=== PATIENT | female | born 1960 | race Two or more races ===

== ENCOUNTER → 2024-08-20 | Outpatient (CLI) | payer MEDICAID, SELFPAY ==
[2024-08-20 11:41] LABS: Basophils # (Auto) 0.1 Thou/mm3 (0.0-0.2); Basophils % (Auto) 1 % (0-2.5); Eosinophils # (Auto) 0.1 Thou/mm3 (0.0-0.5); Eosinophils % (Auto) 1 % (0-10); Hematocrit 42.2 % (36.0-46.0); Hemoglobin 13.4 g/dL (12.0-16.0); Immature Granulocytes % (Auto) 0 % (0-0); Immature Granulocytes Auto 0.02 Thou/mm3 (0.00-0.00); Lymphocytes # (Auto) 2.5 Thou/mm3 (1.0-4.8); Lymphocytes % (Auto) 27 % (10-50); Mean Corpuscular HGB Conc 31.8 g/dl (31.0-37.0); Mean Corpuscular Hemoglobin 29.1 pg (25.0-35.0); Mean Corpuscular Volume 92 fL (80-100); Monocytes # (Auto) 0.6 Thou/mm3 (0.0-0.8); Monocytes % (Auto) 6 % (0-12); Neutrophils % (Auto) 65 % (37-80); Nucleated Red Blood Cell % 0 /100 WBC (0); Platelet Count 232 Thou/mm3 (140-440); RDW Standard Deviation 47.4 fL (36.4-46.3); White Blood Count 9.2 Thou/mm3 (3.6-11.0)
[2024-08-20 11:59] LABS: Alanine Aminotransferase 11 U/L (10-49); Albumin, Serum 4.4 gm/dL (3.4-4.8); Albumin/Globulin Ratio 1.7 (1.2-2.2); Alkaline Phosphatase 129 U/L (46-116); Anion Gap 5 (7-16); Aspartate Amino Transferase 15 U/L (0-34); BUN/Creatinine Ratio 19 Ratio (12-20); Bilirubin,Total 0.5 mg/dL (0.3-1.2); Blood Urea Nitrogen 15 mg/dL (9-23); Carbon Dioxide 29.1 mMol/L (20.0-31.0); Chloride 108 mMol/L (98-107); Creatinine (Component) 0.8 mg/dL (0.6-1.3); Globulin 2.6 gm/dL (2.3-3.5); Glucose 94 mg/dL (74-106); Osmolality,Calculated 283 (275-295); Potassium 4.6 mMol/L (3.4-5.1); Sodium 142 mMol/L (136-145); eGFR > 60 See Note
== END | disposition home or self-care (01) ==
LOC: SCTO 10:49
PROVIDERS: PCP Physician Assistant Medical; Referring Provider Internal Medicine Hematology & Oncology; Visit Provider Internal Medicine Hematology & Oncology
DX: C50.912 Malignant neoplasm of unspecified site of left female breast (principal)
CPT/HCPCS: 36415; 80053; 85025

== ENCOUNTER 2024-08-26 13:03 | Outpatient (RCR) | payer MEDICARE, MEDICAID, SELFPAY ==
--- NOTE | 2024-08-20 11:21 | CTCFLWUP_ITS ---
[facility] [address] [place], [place] [address] FOLLOW-UP NOTE Date: 08/20/2024 MR#: [id number] Name: SAAD BOLDEN : 1960 Dx: C50.912 Malignant neoplasm of unspecified site of left female breast Identification. Patient with stage I ([id number]) receptor positive HER2 negative CA left breast status post partial mastectomy 1 sentinel node removed Pro Signa intermediate risk 46. Recommended to have radiation therapy without chemo which she completed 04/16/2024. 3990 cGy with 1 000 E boost. Patient is currently on Citracal plus D slow release 600-12.5 twice daily along with tamoxifen 20 [address]id[address]. Tolerating well. Osteoporosis noted on bone density test 05/15/2024 prescribed Reclast once a yea r. States that she is having pain right breast that prevents her from getting a sleep but wears a bra wh ich holds in its place which helps. Not interested in pain pills at this point The breast appears cosmetically satisfactory with thickened area on the inner portion site of the li ginal surgical scar tumor boost. Assessment #1 stage I ([id number]) receptor positive HER2 negative left breast CA status post partial ma stectomy 1 sentinel node removal pro Signa intermediate risk 46. #2. Prescribed tamoxifen; completed XRT to left breast 3990 cGy with E boost completed 04/16/2024. A lso prescribed Reclast once a year for osteoporosis on bone density test. #3. Treated breast looks satisfactory cosmetically, has some tenderness and pain at the scar in the boost site. Declines pain med at this time. #4. Medical oncologist Dr. Mcgrath to see her tomorrow. #5. I will see her in 6 months time. Electronically signed by: Joseph Mendiola M.D. 08/20/2024 11:19 AM
== END 2024-09-13 23:59 | disposition home or self-care (01) ==
LOC: SCTC 13:03
PROVIDERS: PCP Physician Assistant; Referring Provider Radiology Therapeutic Radiology; Visit Provider Internal Medicine Hematology & Oncology
DX: C50.812 Malignant neoplasm of overlapping sites of left female breast (principal); Z17.0 Estrogen receptor positive status [ER+]; Z17.21 Progesterone receptor positive status; Z17.32 Human epidermal growth factor receptor 2 negative status; M81.0 Age-related osteoporosis without current pathological fracture; Z90.12 Acquired absence of left breast and nipple; N64.4 Mastodynia
CPT/HCPCS: 96365; 99212; 99213; J3489; G0463

== ENCOUNTER → 2024-09-09 | Outpatient (CLI) | payer MEDICAID, SELFPAY ==
--- NOTE | 2024-09-09 14:45 | XR_ITS ---
Examination: Ultrasound soft tissue neck TECHNIQUE: Multiple high resolution grayscale sonographic images soft tissue neck Exam date and time: September 09, 2024 1450 hours INDICATIONS: Palpable right neck lump noticed beginning 9 months ago FINDINGS: Soft tissue mass isoechoic at the area concern 3.6 x 0.9 x 2.9 cm IMPRESSION: Findings most consistent with soft tissue lipoma at the area concern, recommend CT soft tissue neck post intravenous contrast follow-up for confirmation
== END | disposition home or self-care (01) ==
PROVIDERS: PCP Physician Assistant Medical; Referring Provider Internal Medicine Hematology & Oncology; Visit Provider Internal Medicine Hematology & Oncology
DX: R22.1 Localized swelling, mass and lump, neck (principal); C50.912 Malignant neoplasm of unspecified site of left female breast
CPT/HCPCS: 76536

== ENCOUNTER → 2024-10-13 | Outpatient (CLI) | payer MEDICARE, MEDICAID, SELFPAY | END | disposition home or self-care (01) | PROVIDERS: Referring Provider Internal Medicine Hematology & Oncology; Visit Provider Internal Medicine Hematology & Oncology | DX: Z53.8 Procedure and treatment not carried out for other reasons (principal) ==

== ENCOUNTER → 2024-10-22 | Outpatient (CLI) | payer MEDICAID, SELFPAY ==
[2024-10-22 11:32] LABS: Basophils # (Auto) 0.1 Thou/mm3 (0.0-0.2); Basophils % (Auto) 1 % (0-2.5); Eosinophils # (Auto) 0.1 Thou/mm3 (0.0-0.5); Eosinophils % (Auto) 1 % (0-10); Hemoglobin 13.1 g/dL (12.0-16.0); Immature Granulocytes % (Auto) 0 % (0-0); Immature Granulocytes Auto 0.02 Thou/mm3 (0.00-0.00); Lymphocytes # (Auto) 1.9 Thou/mm3 (1.0-4.8); Lymphocytes % (Auto) 22 % (10-50); Mean Corpuscular HGB Conc 33.6 g/dl (31.0-37.0); Mean Corpuscular Volume 86 fL (80-100); Monocytes # (Auto) 0.5 Thou/mm3 (0.0-0.8); Monocytes % (Auto) 6 % (0-12); Neutrophils # (Auto) 5.8 Thou/mm3 (1.8-7.7); Neutrophils % (Auto) 70 % (37-80); Nucleated Red Blood Cell % 0 /100 WBC (0); Platelet Count 269 Thou/mm3 (140-440); RDW Standard Deviation 44.4 fL (36.4-46.3); Red Blood Count 4.52 Miln/mm3 (4.00-5.20); White Blood Count 8.3 Thou/mm3 (3.6-11.0)
[2024-10-22 12:10] LABS: CA 15-3 8.4 U/mL (<32.4)
[2024-10-22 12:17] LABS: Alanine Aminotransferase 13 U/L (10-49); Albumin, Serum 4.6 gm/dL (3.4-4.8); Albumin/Globulin Ratio 1.6 (1.2-2.2); Alkaline Phosphatase 115 U/L (46-116); Anion Gap 9 (7-16); Aspartate Amino Transferase 18 U/L (0-34); BUN/Creatinine Ratio 21 Ratio (12-20); Bilirubin,Total 0.4 mg/dL (0.3-1.2); Blood Urea Nitrogen 15 mg/dL (9-23); Calcium 9.5 mg/dL (8.3-10.6); Calcium (Corrected) 9.5 mg/dL (8.5-10.1); Carbon Dioxide 25.8 mMol/L (20.0-31.0); Chloride 104 mMol/L (98-107); Creatinine (Component) 0.7 mg/dL (0.6-1.3); Globulin 2.9 gm/dL (2.3-3.5); Glucose 96 mg/dL (74-106); Osmolality,Calculated 278 (275-295); Potassium 3.9 mMol/L (3.4-5.1); Sodium 139 mMol/L (136-145); Total Protein 7.5 gm/dL (5.7-8.2); eGFR > 60 See Note
== END | disposition home or self-care (01) ==
LOC: SCTO 10:39
PROVIDERS: PCP Physician Assistant Medical; Referring Provider Internal Medicine Hematology & Oncology; Visit Provider Internal Medicine Hematology & Oncology
DX: C50.912 Malignant neoplasm of unspecified site of left female breast (principal)
CPT/HCPCS: 36415; 80053; 85025; 86300

== ENCOUNTER → 2024-10-23 | Outpatient (CLI) | payer MEDICAID, SELFPAY ==
--- NOTE | 2024-10-23 13:33 | XR_ITS ---
Examination: CT soft tissue neck, with intravenous contrast. 2-D coronal reconstructions. 2-D sagittal reconstructions. Date and time of exam :October 23, 2024 1400 hours INDICATIONS: Diagnosis malignant neoplasm left female breast, patient states onset right-sided neck swelling 2 months. CTDI: vol (mGy):8.82 DLP: (mGycm):228 Technique: 1.25 mm axial sections of the neck of the obtained. Coronal and sagittal reconstructions have been obtained. Intravenous contrast administered 50 cc Isovue-370 Low dose protocols were performed. One or more of the following dose reduction techniques were used; automated exposure control, adjustment of the mA and/or KV according to patient size, use of iterative reconstruction technique. Findings: The optic globes exhibit symmetry Maxillary antra are clear Symmetrical nasopharynx oropharynx Right parotid gland is larger than left parietal gland with mild inflammatory change Symmetrical submandibular glands No pathologic carotid triangle submental lymphadenopathy The larynx appears normal Thyroid lobes exhibit symmetry Normal epiglottis Disc disease C5-C6, C6-C7 IMPRESSION: Suspicious for mild parotiditis on the right
== END | disposition home or self-care (01) ==
PROVIDERS: Referring Provider Internal Medicine Hematology & Oncology; Visit Provider Internal Medicine Hematology & Oncology
DX: R22.1 Localized swelling, mass and lump, neck (principal); C50.912 Malignant neoplasm of unspecified site of left female breast
CPT/HCPCS: 70491; A4649; Q9967

== ENCOUNTER 2024-10-27 13:18 | Outpatient (RCR) | payer MEDICAID, SELFPAY | END 2024-11-14 23:59 | disposition home or self-care (01) | LOC: SCTC 13:18 | PROVIDERS: PCP Physician Assistant Medical; Referring Provider Physician Assistant Medical; Visit Provider Internal Medicine Hematology & Oncology | DX: M85.80 Other specified disorders of bone density and structure, unspecified site (principal); C50.812 Malignant neoplasm of overlapping sites of left female breast; Z17.0 Estrogen receptor positive status [ER+]; Z17.21 Progesterone receptor positive status; Z17.32 Human epidermal growth factor receptor 2 negative status; Z79.810 Long term (current) use of selective estrogen receptor modulators (SERMs) | CPT/HCPCS: 96365; J3489 ==

== ENCOUNTER → 2025-01-22 | Outpatient (CLI) | payer MEDICAID, SELFPAY ==
[2025-01-22 11:55] LABS: Basophils # (Auto) 0.1 Thou/mm3 (0.0-0.2); Basophils % (Auto) 1 % (0-2.5); Eosinophils # (Auto) 0.1 Thou/mm3 (0.0-0.5); Eosinophils % (Auto) 1 % (0-10); Hematocrit 38.7 % (36.0-46.0); Hemoglobin 12.5 g/dL (12.0-16.0); Immature Granulocytes % (Auto) 0 % (0-0); Immature Granulocytes Auto 0.03 Thou/mm3 (0.00-0.00); Lymphocytes % (Auto) 23 % (10-50); Mean Corpuscular HGB Conc 32.3 g/dl (31.0-37.0); Mean Corpuscular Hemoglobin 28.4 pg (25.0-35.0); Mean Corpuscular Volume 88 fL (80-100); Monocytes # (Auto) 0.6 Thou/mm3 (0.0-0.8); Monocytes % (Auto) 6 % (0-12); Neutrophils # (Auto) 6.1 Thou/mm3 (1.8-7.7); Neutrophils % (Auto) 69 % (37-80); Nucleated Red Blood Cell % 0 /100 WBC (0); Platelet Count 240 Thou/mm3 (140-440); RDW Standard Deviation 47.5 fL (36.4-46.3); White Blood Count 8.8 Thou/mm3 (3.6-11.0)
[2025-01-22 12:19] LABS: Alanine Aminotransferase 9 U/L (10-49); Albumin, Serum 4.2 gm/dL (3.4-4.8); Albumin/Globulin Ratio 1.6 (1.2-2.2); Alkaline Phosphatase 95 U/L (46-116); Anion Gap 6 (7-16); Aspartate Amino Transferase 14 U/L (0-34); BUN/Creatinine Ratio 24 Ratio (12-20); Bilirubin,Total 0.3 mg/dL (0.3-1.2); Blood Urea Nitrogen 19 mg/dL (9-23); Calcium 9.3 mg/dL (8.3-10.6); Calcium (Corrected) 9.3 mg/dL (8.5-10.1); Carbon Dioxide 28.8 mMol/L (20.0-31.0); Chloride 109 mMol/L (98-107); Creatinine (Component) 0.8 mg/dL (0.6-1.3); Globulin 2.7 gm/dL (2.3-3.5); Glucose 97 mg/dL (74-106); Osmolality,Calculated 289 (275-295); Sodium 144 mMol/L (136-145); Total Protein 6.9 gm/dL (5.7-8.2); eGFR > 60 See Note
[2025-01-22 12:23] LABS: CA 15-3 6.9 U/mL (<32.4)
== END | disposition home or self-care (01) ==
LOC: SLAB 11:19
PROVIDERS: PCP Physician Assistant Medical; Referring Provider Internal Medicine Hematology & Oncology; Visit Provider Internal Medicine Hematology & Oncology
DX: C50.912 Malignant neoplasm of unspecified site of left female breast (principal)
CPT/HCPCS: 36415; 80053; 85025; 86300

== ENCOUNTER 2025-01-26 13:10 | Outpatient (RCR) | payer MEDICAID, SELFPAY | END 2025-02-11 23:59 | disposition home or self-care (01) | LOC: SCTC 13:10 | PROVIDERS: PCP Physician Assistant Medical; Referring Provider Physician Assistant Medical; Visit Provider Internal Medicine Hematology & Oncology | DX: M85.80 Other specified disorders of bone density and structure, unspecified site (principal); C50.912 Malignant neoplasm of unspecified site of left female breast; C50.812 Malignant neoplasm of overlapping sites of left female breast; Z17.0 Estrogen receptor positive status [ER+]; Z17.21 Progesterone receptor positive status; Z17.32 Human epidermal growth factor receptor 2 negative status; Z90.12 Acquired absence of left breast and nipple; Z92.3 Personal history of irradiation; Z79.811 Long term (current) use of aromatase inhibitors | CPT/HCPCS: 96365; J3489 ==

== ENCOUNTER → 2025-02-13 | Outpatient (CLI) | payer MEDICAID, SELFPAY ==
[2025-02-13 14:27] LABS: Basophils # (Auto) 0.1 Thou/mm3 (0.0-0.2); Basophils % (Auto) 1 % (0-2.5); Eosinophils # (Auto) 0.1 Thou/mm3 (0.0-0.5); Eosinophils % (Auto) 2 % (0-10); Hematocrit 39.2 % (36.0-46.0); Hemoglobin 13.2 g/dL (12.0-16.0); Immature Granulocytes % (Auto) 0 % (0-0); Immature Granulocytes Auto 0.03 Thou/mm3 (0.00-0.00); Lymphocytes # (Auto) 2.1 Thou/mm3 (1.0-4.8); Lymphocytes % (Auto) 28 % (10-50); Mean Corpuscular HGB Conc 33.7 g/dl (31.0-37.0); Mean Corpuscular Hemoglobin 28.8 pg (25.0-35.0); Mean Corpuscular Volume 85 fL (80-100); Monocytes # (Auto) 0.4 Thou/mm3 (0.0-0.8); Monocytes % (Auto) 6 % (0-12); Neutrophils # (Auto) 4.8 Thou/mm3 (1.8-7.7); Neutrophils % (Auto) 63 % (37-80); Nucleated Red Blood Cell % 0 /100 WBC (0); Platelet Count 249 Thou/mm3 (140-440); RDW Standard Deviation 44.4 fL (36.4-46.3); Red Blood Count 4.59 Miln/mm3 (4.00-5.20); White Blood Count 7.6 Thou/mm3 (3.6-11.0)
[2025-02-13 14:52] LABS: Alanine Aminotransferase 11 U/L (10-49); Albumin, Serum 4.2 gm/dL (3.4-4.8); Albumin/Globulin Ratio 1.6 (1.2-2.2); Alkaline Phosphatase 107 U/L (46-116); Anion Gap 10 (7-16); Aspartate Amino Transferase 13 U/L (0-34); BUN/Creatinine Ratio 13 Ratio (12-20); Bilirubin,Total 0.3 mg/dL (0.3-1.2); Blood Urea Nitrogen 12 mg/dL (9-23); Calcium 8.9 mg/dL (8.3-10.6); Calcium (Corrected) 8.9 mg/dL (8.5-10.1); Carbon Dioxide 28.6 mMol/L (20.0-31.0); Chloride 105 mMol/L (98-107); Creatinine (Component) 0.9 mg/dL (0.6-1.3); Globulin 2.7 gm/dL (2.3-3.5); Glucose 145 mg/dL (74-106); Osmolality,Calculated 289 (275-295); Sodium 144 mMol/L (136-145); Total Protein 6.9 gm/dL (5.7-8.2); eGFR > 60 See Note
== END | disposition home or self-care (01) ==
PROVIDERS: PCP Physician Assistant Medical; Referring Provider Internal Medicine Hematology & Oncology; Visit Provider Internal Medicine Hematology & Oncology
DX: C50.912 Malignant neoplasm of unspecified site of left female breast (principal)
CPT/HCPCS: 36415; 80053; 85025; 86300

== ENCOUNTER 2025-02-18 10:20 | Outpatient (RCR) | payer MEDICAID, SELFPAY ==
--- NOTE | 2025-02-17 10:10 | CTCFLWUP_ITS ---
[facility] [address] [place], [place] [address] FOLLOW-UP NOTE Date: 02/17/2025 MR#: [id number] Name: SAAD BOLDEN : 1960 Dx: C50.912 Malignant neoplasm of unspecified site of left female breast Identification. Patient with history of left breast CA stage I ([id number]) ER/MI positive HER2 negative left breast status post partial mastectomy, pros Signa 46 intermediate risk, Medical oncologist Dr. Gill, recommended radiation therapy with hormone manipulation. Received radiation therapy to the left breast, 3990 cGy with 1000 E boost completed 04/16/2024. Examination of the left breast reveals satisfactory cosmetic appearance with no sign of recurrence. Mild tenderness at the boost site. Some fullness at the right lower neck which feels like a lipoma. Most recent ultrasound of the neck 09/09/2024 revealed right soft tissue mass 3.6 x 0.9 x 2.9 cm suggestive of lipoma but CT of the neck with IV contrast recommended. CT of the neck 10/23/2024 revealed mild parotitis on the right. A#1. Stage I receptor positive HER2 negative pro Abby 46 intermediate risk, Postop radiation therapy following partial mastectomy completed 04/16/2024. #2. Currently on tamoxifen under Dr. Mcgrath's direction. Also taking calcium vitamin D and Zometa. #3. Dr. Mcgrath scheduled see patient tomorrow. #4. I will see her as needed in the future. Electronically signed by: Joseph Mendiola M.D. 02/17/2025 10:08 AM
--- NOTE | 2025-02-17 10:16 | CTCFLWUP_ITS ---
[facility] [address] [place], [place] [address] FOLLOW-UP NOTE Date: 02/17/2025 MR#: [id number] Name: SAAD BOLDEN : 1960 Dx: C50.912 Malignant neoplasm of unspecified site of left female breast Addendum. Patient has been recently been taking anastrozole which seems to be causing more joint pain compared to prior tamoxifen. She will discuss this with Dr. Mcgrath tomorrow. Electronically signed by: Joseph Mendiola M.D. 02/17/2025 10:14 AM
--- NOTE | 2025-02-18 13:17 | CTCFLWUP_ITS ---
Patient: ABBIE ORTEGA : 1960 Page 2 of 2 FOLLOW UP NOTE DATE OF SERVICE: 02/18/2025 NAME: ABBIE ORTEGA ACCOUNT: [id number] : 1960 AGE: 64 INTERVAL HISTORY: Hali, a breast cancer patient, presented with increased joint pain from tamoxifen therapy and fatigue following a bone-strengthening infusion. Her history includes iron deficiency. She reported taking tamoxifen, anastrozole, Benadryl, calcipotriene, calcium supplements, iron supplements, vitamin C packets, and collagen. The assessment confirmed expected side effects from the infusion and tamoxifen. Management included continuing tamoxifen, increasing hydration, taking Benadryl for symptoms, calcium supplementation, regular walking, dietary modifications for iron intake, and sunscreen use. Follow-up scheduled in 6 months. Chief Complaint Increased joint pain with tamoxifen, fatigue after infusion History of Present Illness Hali is a patient with a history of breast cancer who presents for follow-up regarding joint pain associated with tamoxifen treatment and recent bone-strengthening infusion. The patient reports experiencing increased joint pain since starting tamoxifen therapy. She recently received a bone-strengthening infusion, which has caused additional discomfort. The patient describes feeling down after the infusion, which she understands is a normal reaction. She has been experiencing bone pain, which she attributes to the strengthening process initiated by the infusion. To manage these symptoms, she has been drinking lots of water and taking Benadryl as recommended. The patient mentions taking calcipotriene as advised following her infusion to maintain calcium levels. She expresses concern about her calcium intake, acknowledging that her current diet may not provide sufficient calcium, and recognizes the need for supplements due to decreased absorption with age. The patient also reports having iron deficiency despite eating chicken and vegetables, indicating ongoing nutritional challenges. To address her nutritional needs, the patient has been incorporating electrolyte packets with vitamin C into her daily routine, drinking one packet daily or two when feeling unwell. She has also been making smoothies to improve nutrient intake and absorption, considering adding protein powder or collagen for additional health benefits. The patient notes experiencing fatigue related to the infusions but continues to stay active and hydrated. She recently obtained a refill of tamoxifen from [facility], indicating adherence to her prescribed treatment regimen. Medical History - Iron deficiency - History of cancer (likely breast cancer, given tamoxifen use) Medications and Supplements - Tamoxifen - Causing more joint pain than before - Recently refilled at [facility] - Anastrozole - Bone strengthening infusion - Causes fatigue and pain as bones build - Lowers calcium in blood - Benadryl - Taken to help with infusion side effects - Calcipotriene - Vitamin C packets - Taken for electrolytes - Calcium supplements - Iron supplements - Taken for iron deficiency - Collagen - Taken for hair and skin health Social History - Diet: Eats chicken and vegetables; consumes smoothies with fruits and protein powder or collagen - Exercise: Advised to walk regularly - 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 Musculoskeletal: Positive for joint pain. ONCOLOGY HISTORY: DIAGNOSIS: Stage I (pT1c, sN0, cM0) intermediate grade, ER positive, HI positive, HER2/ester negative invasive ductal carcinoma of the left breast. S/p lumpectomy and sentinel lymph node biopsy (02/01/2024) Prosigna (R) breast cancer gene signature assay score 46 intermediate risk. Status post left breast adjuvant radiation therapy (04/08/2024 - 05/06/2024) Mammographically detected left breast well-differentiated invasive ductal carcinoma, ER positive, HI positive, HER2/ester negative.S/p core needle biopsy (11/14/2023). Hypertension Osteoporosis (DEXA 05/15/2024) REASON FOR TODAY?S VISIT: This is office follow-up visit. Ms. Ortega is here at [facility]. Since last visit she had completed the radiation therapy. She also had bone density test done which showed osteoporosis as documented below. She is clinically doing well at this time. Denies any cough, chest pain, abdominal pain or leg cramps. Ambulating well without any help. Has good appetite and good energy levels. Malignant neoplasm of unspecified site of left female breast [ICD10] C50.912 DATE OF DIAGNOSIS: STAGE/TNM: TREATMENT HISTORY: Care?Plan Start?Date Cycle Day Intent Reclast 05/21/2024 1 365 Palliative zometa?q?30?days,?q?90?days?for?bone?mets 08/26/2024 1 90 Maintenance HISTORY OF PRESENT ILLNESS: Abbie Ortega is a 64-year-old ENG speaking female with following oncology history. 10/17/2023: Ms. Ortega had core needle biopsy done for a mammographically detected abnormal lesion in the left breast at 9 o'clock position. 02/01/2024: Ms. Ortega had lumpectomy and sentinel lymph node biopsy of the left breast. 04/08/2024 - 05/06/2024: Ms. Ortega had a total of 4990 centigray radiation therapy to the left breast. 05/15/2024: Bone density test PAST MEDICAL HISTORY: Breast cancer - dx 11/14/23 HTN Hyperlipidemia Pre-diabetic Seasonal allergies OTHER MEDICAL HISTORY/CONDITIONS: Breast cancer - dx 11/14/23 HTN Hyperlipidemia Pre-diabetic Seasonal allergies Denies FAMILY HISTORY: Cancer History:?Maternal aunt - breast - dx 63 - SOCIAL HISTORY: Occupational?History:?Retired Education?Level:?Completed High School Marital?Status:? Tobacco?Pack?per?Day:?1 Tobacco?Use?Years:?40 Tobacco Use:?Still smoking 3-4 cigarettes/day ETOH?Use:?Socially Drug?Note:?Denies Social?History?Note:?Lives?alone CONFIGURATION MANAGEMENT ADMINISTRATOR HISTORY: Menarche?-?Age:?9 Menopause:?45 ?Test?Indicated:?0?-?NO??Not?Required Hormone?Use:?Denies :?2 Live?Births:?2 Age?1st?:?17 MEDICATIONS: 1. Calcium Citrate + - tab Daily 2. Citracal + D Slow Release - 600 mg-12.5 mcg (500 unit) 1 tab one tab po twice a day 3. hydroCHLOROthiazide - 12.5 mg tab Daily 4. loratadine - 10 mg (Rapid) tab Daily 5. magnesium oxide - 400 mg magnesium 1 tab Daily 6. nicotine (polacrilex) - 4 mg As directed 7. Nicotine Gum - As directed 8. potassium - 20 mg tab Daily 9. tamoxifen - 20 mg 1 tab one tab po q daily 10. vitamin E (dl, acetate) - 180 mg (400 unit) 1 Capsule Daily Medications Last Reconciled by Chrystal Hunter MD on 02/18/2025 ALLERGIES: No Known Allergies REVIEW OF SYSTEMS: A complete 14-point review of systems was performed and is negative except as noted in interval history. PHYSICAL EXAMINATION: VITAL SIGNS: Temperature?96.9, B/P?160/98, Oxygen?Saturation?95% Weight?126?lbs (Change?since?02/17/25:?0?lbs) PAIN: 0 - No pain ECOG Performance Status: 0 - Asymptomatic and fully active GENERAL APPEARANCE: Appears well, in no apparent distress, appropriately interactive. HEENT: Normocephalic, no temporal wasting, normal conjunctiva, no scleral icterus, normal hearing, lips without lesions, neck normal range of motion. CARDIOVASCULAR: Not assessed. PULMONARY: Normal respiratory effort, no respiratory distress or use of accessory muscles, speaking in full sentences, no tachypnea. EXTREMITIES: No pedal edema or cyanosis. SKIN: Normal skin appearance. NEUROLOGIC: Alert and oriented x4. PSHYCHIATRIC: Appropriate affect, mood normal, behavior normal, intact thought and speech. LABORATORY DATA: I have personally reviewed and interpreted each of the patient?s relevant lab tests, abnormal findings are below: Date 01/22/25 02/13/25 ??WHITE?BLOOD?COUNT?(Thou/mm3) 8.8 7.6 ??RED?BLOOD?COUNT?(Miln/mm3) 4.40 4.59 ??HEMOGLOBIN?(gm/dl) 12.5 13.2 ??HEMATOCRIT?(%) 38.7 39.2 ??PLATELET?COUNT?(Thou/mm3) 240 249 ??NEUTROPHILS?%,?AUTO?(%) 69 63 ??LYMPH?%,?AUTO?(%) 23 28 ??NEUTROPHILS,?AUTO?(Thou/mm3) 6.1 4.8 ??GLUCOSE,RANDOM?(mg/dL) 97 145?H ??BLOOD?UREA?NITROGEN?(mg/dL) 19 12 ??CREATININE?(mg/dL) 0.80 0.90 ??SODIUM?(mmol/L) 144 144 ??POTASSIUM?(mmol/L) 4.0 4.0 ??CHLORIDE?(mmol/L) 109?H 105 ??CrCl?(CandG)?(ml/min) 61.12 55.39 ??AST/SGOT?(Unit/L) 14 13 ??ALT/SGPT?(Unit/L) 9?L 11 ??ALKALINE?PHOSPHATASE?(Unit/L) 95 107 ??BILIRUBIN,?TOTAL?(mg/dL) 0.3 0.3 ??PROTEIN?TOTAL?(gm/dl) 6.9 6.9 ??ALBUMIN,?SERUM?(gm/dl) 4.2 4.2 ??GLOBULIN?(gm/dl) 2.7 2.7 ??ALBUMIN/GLOBULIN?RATIO 1.6 1.6 ??CALCIUM,?SERUM?(mg/dL) 9.3 8.9 ??CALCIUM?SERUM?(CORRECTED)?(mg/dL) 9.3 8.9 ASSESSMENT/PLAN: 1. Stage I (pT1c, sN0, cM0) intermediate grade, ER positive, HI positive, HER2/ester negative invasive ductal carcinoma of the left breast. 2. S/p radiation therapy to the left breast completed on 05/06/2024. 3. S/p lumpectomy and sentinel lymph node biopsy (02/01/2024) Prosigna (R) breast cancer gene signature assay score 46 intermediate risk. 4. Osteoporosis documented on bone density test done on 05/15/2024 5. Mammographically detected left breast well-differentiated invasive ductal carcinoma, ER positive, HI positive, HER2/ester negative.S/p core needle biopsy (11/14/2023). Hali, a patient on tamoxifen therapy, presents with increased joint pain following a bone-strengthening infusion. Joint pain associated with tamoxifen and bone-strengthening infusion Assessment: Patient reports experiencing increased joint pain following a bone- strengthening infusion while on tamoxifen therapy. This is likely a normal response to the infusion, which strengthens bones by depositing calcium from the blood into the bone tissue. The process can cause temporary pain and fatigue as the bones build strength. Additionally, the infusion may lead to a transient decrease in blood calcium levels. Plan: - Continue current tamoxifen therapy (dose and frequency not specified) - Recommend increased water intake to manage infusion side effects - Advise taking Benadryl for symptom relief (dose and frequency not specified) - Encourage calcium supplementation to prevent deficiency - Recommend electrolyte supplements with vitamin C for hydration and fatigue management - Advise on dietary calcium intake, cautioning against excessive cheese consumption due to potential heart issues - Encourage regular walking to prevent blood clots associated with tamoxifen use - Follow up in 6 months - Instruct patient to seek emergency care for new pain or shortness of breath Nutritional management Assessment: Patient reports eating chicken and vegetables but still experiences iron deficiency, likely due to poor absorption. This suggests a need for targeted nutritional supplementation and dietary adjustments to address potential deficiencies. Plan: - Recommend spinach consumption for iron intake - Advise on making nutrient-rich smoothies, incorporating fruits and protein powder or collagen - Caution against excessive sugar intake to prevent diabetes risk - Suggest daily intake of electrolyte packets with vitamin C, increasing to twice daily when ill - Recommend use of Emergen-C with vitamin C and electrolytes to combat weakness and fatigue, especially during outdoor activities Skin cancer prevention Assessment: Given the patient's ongoing cancer treatment, there is an increased importance of skin cancer prevention measures. Plan: - Advise regular use of sunscreen for skin cancer prevention Cardiovascular health Assessment: Patient on tamoxifen therapy, which carries a risk of blood clots. Additionally, there may be concerns about cardiovascular health in the context of cancer treatment. Plan: - Consider daily aspirin for heart attack prevention, especially if patient has high blood pressure or diabetes (dose not specified)Tamoxifen 20 mg p.o. daily. Plan is to give her tamoxifen for total of 5 to 7 years. Citracal 1 tablet p.o. twice daily. Reclast 5 mg IV once a year. I will see her back in clinic in 3 months with labs drawn prior to the visit. ORDERS: Order # Description [id number] Comprehensive Metabolic Panel - 12 + CBC with Auto Diff + CEA [id number] CA [id number] [id number] Follow Up 6 Month RETURN TO CLINIC: BILLING AND COMPLIANCE: I reviewed external records from providers outside my specialty as summarized above. I spent a total of 50 minutes on this patient?s care on the day of their visit excluding time spent related to any billed procedures. This time includes time spent with the patient as well as time spent documenting in the medical record, reviewing patients records and tests, obtaining history, placing orders, communicating with other healthcare professionals, counseling the patient, family or caregiver, and/or care coordination for the diagnoses above. Electronically Signed by: Lobo Mcgrath MD T: 1:15 PM CC: Jerson? PCP: Referring: Marii Taylor This document was completed utilizing speech recognition software. Grammatical errors, random word insertions, pronoun errors, and incomplete sentences are an occasional consequence of this system due to software limitations, ambient noise, and hardware issues. Any formal questions or concerns about the content, text or information contained within the body of this dictation should be directly addressed to the provider for clarification.
== END 2025-03-14 23:59 | disposition home or self-care (01) ==
LOC: SCTC 10:20
PROVIDERS: PCP Physician Assistant Medical; Referring Provider Physician Assistant Medical; Visit Provider Internal Medicine Hematology & Oncology
DX: C50.812 Malignant neoplasm of overlapping sites of left female breast (principal); Z17.0 Estrogen receptor positive status [ER+]; Z17.21 Progesterone receptor positive status; Z17.32 Human epidermal growth factor receptor 2 negative status; Z90.12 Acquired absence of left breast and nipple; Z92.3 Personal history of irradiation; Z79.810 Long term (current) use of selective estrogen receptor modulators (SERMs); M81.0 Age-related osteoporosis without current pathological fracture
CPT/HCPCS: 99212; G0463

== ENCOUNTER → 2025-08-24 | Outpatient (CLI) | payer MEDICARE, MEDICAID, SELFPAY ==
[2025-08-24 12:29] LABS: Alanine Aminotransferase 14 U/L (10-49); Albumin, Serum 4.5 gm/dL (3.4-4.8); Albumin/Globulin Ratio 2.3 (1.2-2.2); Alkaline Phosphatase 94 U/L (46-116); Anion Gap 8 (7-16); Aspartate Amino Transferase 17 U/L (0-34); BUN/Creatinine Ratio 24 Ratio (12-20); Bilirubin,Total 0.3 mg/dL (0.3-1.2); Blood Urea Nitrogen 19 mg/dL (9-23); Calcium 10.1 mg/dL (8.3-10.6); Calcium (Corrected) 10.1 mg/dL (8.5-10.1); Carbon Dioxide 31.3 mMol/L (20.0-31.0); Chloride 105 mMol/L (98-107); Creatinine (Component) 0.8 mg/dL (0.6-1.3); Globulin 2.0 gm/dL (2.3-3.5); Glucose 154 mg/dL (74-106); Osmolality,Calculated 292 (275-295); Potassium 3.8 mMol/L (3.4-5.1); Sodium 144 mMol/L (136-145); Total Protein 6.5 gm/dL (5.7-8.2); eGFR > 60 See Note
[2025-08-24 12:37] LABS: Basophils # (Auto) 0.1 Thou/mm3 (0.0-0.2); Basophils % (Auto) 1 % (0-2.5); Eosinophils # (Auto) 0.1 Thou/mm3 (0.0-0.5); Eosinophils % (Auto) 1 % (0-10); Hematocrit 40.1 % (36.0-46.0); Hemoglobin 13.3 g/dL (12.0-16.0); Immature Granulocytes Auto 0.03 Thou/mm3 (0.00-0.00); Lymphocytes # (Auto) 2.3 Thou/mm3 (1.0-4.8); Lymphocytes % (Auto) 28 % (10-50); Mean Corpuscular HGB Conc 33.2 g/dl (31.0-37.0); Mean Corpuscular Hemoglobin 29.6 pg (25.0-35.0); Mean Corpuscular Volume 89 fL (80-100); Monocytes # (Auto) 0.5 Thou/mm3 (0.0-0.8); Monocytes % (Auto) 5 % (0-12); Neutrophils # (Auto) 5.4 Thou/mm3 (1.8-7.7); Neutrophils % (Auto) 64 % (37-80); Nucleated Red Blood Cell # 0.00 Thou/mm3 (0.00-0.00); Nucleated Red Blood Cell % 0 /100 WBC (0); Platelet Count 230 Thou/mm3 (140-440); RDW Standard Deviation 45.3 fL (36.4-46.3); Red Blood Count 4.50 Miln/mm3 (4.00-5.20); White Blood Count 8.4 Thou/mm3 (3.6-11.0)
[2025-08-24 12:48] LABS: CA 15-3 2.9 U/mL (<32.4); Carcinoembryonic Antigen 4.2 ng/mL (0.0-5.0)
== END | disposition home or self-care (01) ==
LOC: SCTO 11:16
PROVIDERS: PCP Physician Assistant Medical; Referring Provider Internal Medicine Hematology & Oncology; Visit Provider Internal Medicine Hematology & Oncology
DX: C50.912 Malignant neoplasm of unspecified site of left female breast (principal)
CPT/HCPCS: 36415; 80053; 82378; 85025; 86300

== ENCOUNTER 2025-08-31 12:54 | Outpatient (RCR) | payer MEDICARE, MEDICAID, SELFPAY ==
--- NOTE | 2025-08-26 11:48 | CTCFLWUP_ITS ---
Patient: ABBIE ORTEGA : 1960 Page 2 of 2 FOLLOW UP NOTE DATE OF SERVICE: 08/26/2025 NAME: ABBIE ORTEGA ACCOUNT: [id number] : 1960 AGE: 64 INTERVAL HISTORY: Hali, a breast cancer patient, on tamoxifen and dealing well. Patient also takes her VIt D3 Patient is taking hydrochlorothiazide for her blood pressure and atorvastatin. Complaints of muscle aches and pains unable to sleep at nighttime. Patient also noted to have elevated blood sugar. Medical History - Iron deficiency - History of cancer (likely breast cancer, given tamoxifen use) Medications and Supplements - Tamoxifen - Causing more joint pain than before - [facility] - Bone strengthening infusion - Causes fatigue and pain as bones build - Lowers calcium in blood - Benadryl - Taken to help with infusion side effects - Calcipotriene - Vitamin C packets - Taken for electrolytes - Calcium supplements - Iron supplements - Taken for iron deficiency - Collagen - Taken for hair and skin health Social History - Diet: Eats chicken and vegetables; consumes smoothies with fruits and protein powder or collagen - Exercise: Advised to walk regularly - 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 Musculoskeletal: Positive for joint pain. 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 S/p lumpectomy and sentinel lymph node biopsy (02/01/2024) Prosigna (R) breast cancer gene signature assay score 46 intermediate risk. Status post left breast adjuvant radiation therapy (04/08/2024 - 05/06/2024) Mammographically detected left breast well-differentiated invasive ductal carcinoma, ER positive, SC positive, HER2/ester negative.S/p core needle biopsy (11/14/2023). Hypertension Osteoporosis (DEXA 05/15/2024) REASON FOR TODAY?S VISIT: This is office follow-up visit. Ms. Ortega is here at [facility]. Since last visit she had completed the radiation therapy. She also had bone density test done which showed osteoporosis as documented below. She is clinically doing well at this time. Denies any cough, chest pain, abdominal pain or leg cramps. Ambulating well without any help. Has good appetite and good energy levels. Malignant neoplasm of unspecified site of left female breast [ICD10] C50.912 DATE OF DIAGNOSIS: 10/17/2023 STAGE/TNM: Stage1 left breast cancer TREATMENT HISTORY: Care?Plan Start?Date Cycle Day Intent Reclast 05/21/2024 1 365 Palliative zometa?q?30?days,?q?90?days?for?bone?mets 08/26/2024 1 90 Maintenance HISTORY OF PRESENT ILLNESS: Abbie Ortega is a 64-year-old ENG speaking female with following oncology history. 10/17/2023: Ms. Ortega had core needle biopsy done for a mammographically detected abnormal lesion in the left breast at 9 o'clock position. 02/01/2024: Ms. Ortega had lumpectomy and sentinel lymph node biopsy of the left breast. 04/08/2024 - 05/06/2024: Ms. Ortega had a total of 4990 centigray radiation therapy to the left breast. 05/15/2024: Bone density test PAST MEDICAL HISTORY: Breast cancer - dx 11/14/23 HTN Hyperlipidemia Pre-diabetic Seasonal allergies OTHER MEDICAL HISTORY/CONDITIONS: Breast cancer - dx 11/14/23 HTN Hyperlipidemia Pre-diabetic Seasonal allergies Denies FAMILY HISTORY: Cancer History:?Maternal aunt - breast - dx 63 - SOCIAL HISTORY: Occupational?History:?Retired Education?Level:?Completed High School Marital?Status:? 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 Calcium Citrate + - tab Daily 2. Citracal + D Slow Release - 600 mg-12.5 mcg (500 unit) 1 tab one tab po twice a day 3. hydroCHLOROthiazide - 12.5 mg tab Daily 4. loratadine - 10 mg (Rapid) tab Daily 5. magnesium oxide - 400 mg magnesium 1 tab Daily 6. nicotine (polacrilex) - 4 mg As directed 7. Nicotine Gum - As directed 8. potassium - 20 mg tab Daily 9. tamoxifen - 20 mg 1 tab Daily 10. vitamin E (dl, acetate) - 180 mg (400 unit) 1 Capsule Daily Medications Last Reconciled by Chrystal Hunter MD on 08/26/2025 ALLERGIES: No Known Allergies REVIEW OF SYSTEMS: A complete 14-point review of systems was performed and is negative except as noted in interval history. PHYSICAL EXAMINATION: VITAL SIGNS: Temperature?96.9, B/P?134/81, Oxygen?Saturation?95% Weight?127?lbs PAIN: 0 - No pain ECOG Performance Status: 1 - Symptomatic; ambulatory; restricted in strenuous activity GENERAL APPEARANCE: Appears well, in no apparent distress, appropriately interactive. HEENT: Normocephalic, no temporal wasting, normal conjunctiva, no scleral icterus, normal hearing, lips without lesions, neck normal range of motion. CARDIOVASCULAR: Not assessed. PULMONARY: Normal respiratory effort, no respiratory distress or use of accessory muscles, speaking in full sentences, no tachypnea. EXTREMITIES: No pedal edema or cyanosis. SKIN: Normal skin appearance. NEUROLOGIC: Alert and oriented x4. PSHYCHIATRIC: Appropriate affect, mood normal, behavior normal, intact thought and speech. LABORATORY DATA: I have personally reviewed and interpreted each of the patient?s relevant lab tests, abnormal findings are below: Date 02/13/25 08/24/25 ??WHITE?BLOOD?COUNT?(Thou/mm3) 7.6 8.4 ??RED?BLOOD?COUNT?(Miln/mm3) 4.59 4.50 ??HEMOGLOBIN?(gm/dl) 13.2 13.3 ??HEMATOCRIT?(%) 39.2 40.1 ??PLATELET?COUNT?(Thou/mm3) 249 230 ??NEUTROPHILS?%,?AUTO?(%) 63 64 ??LYMPH?%,?AUTO?(%) 28 28 ??NEUTROPHILS,?AUTO?(Thou/mm3) 4.8 5.4 ??GLUCOSE,RANDOM?(mg/dL) ? 154?H ??BLOOD?UREA?NITROGEN?(mg/dL) ? 19 ??CREATININE?(mg/dL) ? 0.80 ??SODIUM?(mmol/L) ? 144 ??POTASSIUM?(mmol/L) ? 3.8 ??CHLORIDE?(mmol/L) ? 105 ??CrCl?(CandG)?(ml/min) ? 62.41 ??AST/SGOT?(Unit/L) ? 17 ??ALT/SGPT?(Unit/L) ? 14 ??ALKALINE?PHOSPHATASE?(Unit/L) ? 94 ??BILIRUBIN,?TOTAL?(mg/dL) ? 0.3 ??PROTEIN?TOTAL?(gm/dl) ? 6.5 ??ALBUMIN,?SERUM?(gm/dl) ? 4.5 ??GLOBULIN?(gm/dl) ? 2.0?L ??ALBUMIN/GLOBULIN?RATIO ? 2.3?H ??CALCIUM,?SERUM?(mg/dL) ? 10.1 ??CALCIUM?SERUM?(CORRECTED)?(mg/dL) ? 10.1 ??CEA?(O*)?(ng/ml) ? 4.2 ASSESSMENT/PLAN: 1 Stage I (pT1c, sN0, cM0) intermediate grade, ER positive, SC positive, HER2/ester negative invasive ductal carcinoma of the left breast. S/p radiation therapy to the left breast completed on 05/06/2024. S/p lumpectomy and sentinel lymph node biopsy (02/01/2024) Prosigna (R) breast cancer gene signature assay score 46 intermediate risk. Tamoxifen 20 mg p.o. daily. Plan is to give her tamoxifen for total of 5 to 7 years. Citracal 1 tablet p.o. twice daily. Reclast 5 mg IV once a year. I will see her back in clinic in 6 months with labs drawn prior to the visit. 2. Osteoporosis documented on bone density test done on 05/15/2024 3. Skin cancer prevention Patient has mole in the inside of her lip and also dry spot on the nose plan: -Refer to dermatology to evaluate for mole removal to make sure it is not melanoma advise regular use of sunscreen for skin cancer prevention 4 Cardiovascular health Patient have hypertension and is on hydrochlorothiazide Send a message to primary care to change it to losartan if no contraindications Patient's blood sugar also noted to be elevated and known diagnosis of diabetes Ordered hemoglobin A1c and advised to follow-up with primary care Consider baby aspirin ORDERS: Order # Description [id number] Comprehensive Metabolic Panel - 12 + CBC with Auto Diff + [id number] CA [id number] CBC + Comprehensive Metabolic Panel [id number] Lab Appointment [id number] CBC + Comprehensive Metabolic Panel [id number] Lab Appointment [id number] CBC + Comprehensive Metabolic Panel [id number] Lab Appointment [id number] CBC + Comprehensive Metabolic Panel [id number] Lab Appointment RETURN TO CLINIC: I reviewed the diagnosis, prognosis, and recommended treatment/procedure options with the patient (and/or their legal equal opportunity representative), including the potential benefits, risks, side effects and alternative therapies. We also discussed the option of no treatment and the possibility of clinical trial participation, if applicable. All questions were addressed, and they demonstrated understanding. They provided informed consent to proceed with the proposed plan of care. BILLING AND COMPLIANCE: I reviewed external records from providers outside my specialty as summarized above. I spent a total of 50 minutes on this patient?s care on the day of their visit excluding time spent related to any billed procedures. This time includes time spent with the patient as well as time spent documenting in the medical record, reviewing patients records and tests, obtaining history, placing orders, communicating with other healthcare professionals, counseling the patient, family or caregiver, and/or care coordination for the diagnoses above. Electronically Signed by: Lobo Mcgrath MD T: 11:45 AM CC: Joseph?Marlena? PCP: Referring: Marii Taylor This document was completed utilizing speech recognition software. Grammatical errors, random word insertions, pronoun errors, and incomplete sentences are an occasional consequence of this system due to software limitations, ambient noise, and hardware issues. Any formal questions or concerns about the content, text or information contained within the body of this dictation should be directly addressed to the provider for clarification.
== END 2025-09-13 23:59 | disposition home or self-care (01) ==
LOC: SCTC 12:54
PROVIDERS: Visit Provider Internal Medicine Hematology & Oncology
DX: M81.0 Age-related osteoporosis without current pathological fracture (principal); C50.812 Malignant neoplasm of overlapping sites of left female breast; Z17.0 Estrogen receptor positive status [ER+]; Z17.21 Progesterone receptor positive status; Z17.32 Human epidermal growth factor receptor 2 negative status; Z92.3 Personal history of irradiation; Z90.12 Acquired absence of left breast and nipple; D22.0 Melanocytic nevi of lip; L85.3 Xerosis cutis; I10 Essential (primary) hypertension
CPT/HCPCS: 96365; 99212; J3489; J7030; G0463